=== PATIENT | female | born 1970 ===

== ENCOUNTER 2021-04-14 12:45 | Inpatient (IN) | payer OTHER ==
[~2021-04-14] VITALS: Ht 160 cm; Wt 134.3 kg
[2021-04-14] MEDS ORDERED: LEVOTHYROXINE25 MCG PO (17:11)
[2021-04-14] MEDS ORDERED: IRO PO (17:12)
[2021-04-14] MEDS ORDERED: FOLIC PO (17:12)
== END 2021-04-23 12:50 | disposition home or self-care (01) | DRG 743 ==
LOC: O/R 04-20 05:34 → OB/GYN 04-20 05:34
PROVIDERS: ADMIT Specialist; ATTEND Specialist
PROC: 0UT20ZZ Resection of Bilateral Ovaries, Open Approach (ICD-10-PCS; 2021-04-20)
PROC: 0UT70ZZ Resection of Bilateral Fallopian Tubes, Open Approach (ICD-10-PCS; 2021-04-20)
PROC: 0DNW0ZZ Release Peritoneum, Open Approach (ICD-10-PCS; 2021-04-20)
PROC: 0DNN0ZZ Release Sigmoid Colon, Open Approach (ICD-10-PCS; 2021-04-20)
PROC: 0DBU0ZZ Excision of Omentum, Open Approach (ICD-10-PCS; 2021-04-20)
PROC: 0UT90ZZ Resection of Uterus, Open Approach (ICD-10-PCS; principal; 2021-04-20 10:00)
DX: N84.0 Polyp of corpus uteri (principal); N80.0 Endometriosis of uterus; D27.0 Benign neoplasm of right ovary; N73.6 Female pelvic peritoneal adhesions (postinfective); N99.4 Postprocedural pelvic peritoneal adhesions; N70.11 Chronic salpingitis; N83.02 Follicular cyst of left ovary; E66.01 Morbid (severe) obesity due to excess calories; E03.9 Hypothyroidism, unspecified